=== PATIENT | male | born 1970 | race Caucasian/White ===

== ENCOUNTER 2017-05-26 08:00 | Inpatient (IN) | payer MEDICARE ==
[~2017-05-26] VITALS: Ht 180.3 cm; Wt 99.3 kg
--- NOTE | ~2017-05-26 | PA ---
Unit #: [id number] #: [id number] Patient: KAREEM HODGSON [id number] [facility] [address] [place] [address] [id number] MR#: [id number] NAME: KAREEM HODGSON ROOM: [facility] Age: 46 Sex: M Admission Date: 05/26/2017 : 1970 Date of Assessment: 05/27/2017 Attending Physician: Carlos Blankenship M.D. Admitting Physician: Carlos Blankenship M.D. Primary Care Physician: Primary Care Physician No PSYCHIATRIC ASSESSMENT IDENTIFYING INFORMATION The patient is a 46-year-old white male admitted to the [facility] unit reporting positive suicidal ideation. CHIEF COMPLAINT Tried to kill myself INFORMANT The patient, reliability is fair. HISTORY OF PRESENT ILLNESS The patient is a 46-year-old white male admitted after he had presented to this facility voicing positive suicidal ideation and the patient reports that he attempted to hand himself yesterday and then in fact had gone so far as to throw a rope over a tree limb but reports that he failed because "it hurt too bad." The patient reports that he then took the bus to this facility. The patient reports no specific precipitant to this episode but reports that he has been homeless for some time. He is currently living on a shack on his uncle's property. 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 The patient moved to the [facility] from [place] approximately two years ago. He does report a history of treatment with Depakote in the past. He has an extensive substance abuse history but has been clean from alcohol and other substances since October of 2016. He does have a history of sclerotic liver disease per his report. When seen today the patient continues to endorse positive suicidal ideation. He denies any homicidal ideation. He denies any psychotic symptoms. He is a poor historian. As noted previously he can report no specific stressor which led to yesterday's reported suicide attempt. He eludes to several other previous suicide attempts in the past both by hanging and by attempted self-laceration. PAST PSYCHIATRIC HISTORY The patient reports that he was prescribed Depakote at [facility]" but is currently on no prescribed medication. MEDICATIONS None. ALLERGIES None. FAMILY HISTORY Noncontributory. Unit #: [id number] #: [id number] Patient: KAREEM HODGSON SOCIAL HISTORY The patient states that he completed the eleventh grade. He has never and has no children. He reports history of incarceration on two occasions for "drinking in public". His vocational history is described previously as is his substance abuse history. MENTAL STATUS EXAMINATION At this time reveals the patient to be a well-developed, well-nourished somewhat disheveled white male, appearing his stated age. He is in no apparent physical distress at the time of examination. He is awake, alert, and oriented in all spheres. His mood is dysphoric. His affect is flat. Speech is impoverished and frequently invasive. There are no gross deficits in memory or cognition noted. Intelligence is judged to be in the low average range based on fund of knowledge. The patient is generally cooperative throughout the interview. He is currently endorsing positive suicidal ideation. He denies homicidal ideation. He denies any psychotic symptoms. His judgment and insight appear to have some impairment. ASSETS AND LIABILITIES ASSETS: To be assessed. LIABILITIES: Lack of resources, homelessness. DIAGNOSTIC IMPRESSION 1. Major depressive disorder, recurrent, moderate. 2. Sclerotic liver disease. 3. History of alcohol use disorder. TREATMENT PLAN The patient remains hospitalized for safety and stabilization. I will begin a trial of citalopram 20 mg daily to address the patient's depressive symptoms. He does not at this point report a history which would seem consistent with bipolar spectrum disorder. The patient will participate in appropriate mariee and milieu activities and we will watch for any signs of withdrawal though he denies having abused any substances recently stating that he has been sober since October of this year. ESTIMATED LENGTH OF STAY Seven to ten days. Dictated by... Carlos Blankenship M.D. ANABEL/arminda TD: 05/28/2017 00:10 JOB #: [id number] Unit #: [id number] #: [id number] Patient: KAREEM HODGSON PSYCHIATRIC ASSESSMENT Page 1 of 1 X Carlos Blankenship MD PSYCHIATRIC ASSESSMENT
--- NOTE | ~2017-05-26 | PN ---
Unit #: [id number] #: [id number] Patient: KAREEM HODGSON [id number] [facility] [address] [place] [address] [id number] I MR#: [id number] NAME: KAREEM HODGSON ROOM: P110 Age: 46 Sex: M Admission Date: 05/26/2017 : 1970 Attending Physician: Carlos Blankenship M.D. Admitting Physician: Carlos Blankenship M.D. Primary Care Physician: Primary Care Physician Cassidy DRAKE PROGRESS NOTES DATE 05/29/2017 DISCUSSION The patient remains seclusive to room but wakens without difficulty today. He reports today that he is continuing to have some suicidal ideation but that his thoughts are somewhat reduced. We continue current pharmacotherapy with Risperdal. Dictated by... Carlos Blankenship M.D. CB/amabr TD: 05/29/2017 14:43 JOB #: [id number] [facility] PROGRESS NOTES Page 1 of 1 X Carlos Blankenship MD X PROGRESS NOTE
--- NOTE | ~2017-05-26 | HP ---
Unit #: [id number] #: [id number] Patient: KAREEM HODGSON [id number] [place] [address] [id number] I MR#: [id number] NAME: KAREEM HODGSON ROOM: 74 Age: 46 Sex: M Admission Date: 05/26/2017 : 1970 Attending Physician: Carlos Blankenship M.D. Admitting Physician: Carlos Blankenship M.D. Primary Care Physician: Primary Care Physician No HISTORY AND PHYSICAL HISTORY OF PRESENT ILLNESS The patient is a 46-year-old male admitted to [facility] on 05/26/2017 for suicidal ideations. PAST MEDICAL HISTORY 1. History of recurrent DVT and PE. 2. Cirrhosis. PAST SURGICAL HISTORY IVC filter. SOCIAL HISTORY He is unemployed. He lives in a shed. He smokes three to four cigarettes per day. Drinks a 12-pack of beer per week and uses heroin on a daily basis. FAMILY MEDICAL HISTORY Noncontributory. ALLERGIES No known drug allergies. CURRENT MEDICATIONS Patient is not on any home medications. REVIEW OF SYSTEMS CONSTITUTIONAL: No fever or chills. HEENT: Denies any sore throat, ear pain or runny nose. CARDIOVASCULAR: Denies chest pain, irregular heart rhythm or palpitations. CHEST: Denies shortness of breath or cough. No hemoptysis. GASTROINTESTINAL: Denies nausea, vomiting, diarrhea or chronic constipation. ENDOCRINE: Denies history of increased thirst or urination. No recent significant weight loss or gain. GENITOURINARY: Denies dysuria, frequency, or hematuria. SKIN: Denies any rashes. HEMATOLOGIC: Denies history of increased bleeding or bruising. MUSCULOSKELETAL: Denies any hot, swollen joints. No generalized muscle pain. NEUROLOGIC: Denies problems with vision or speech. No frequent, severe headaches. No numbness, tingling or weakness in any extremities. Denies loss of bladder or bowel control. Unit #: [id number] #: [id number] Patient: KAREEM HODGSON PHYSICAL EXAM GENERAL: He is awake, alert and oriented in no acute distress. VITAL SIGNS: Temperature 98.1, heart rate 98, respiration 24, blood pressure 139/57. HEIGHT: 5'11". WEIGHT: 219 pounds. SKIN: Warm and dry without rash or lesion. HEENT: Normocephalic. TMs not viewed. Oral and nasal passages clear. Conjunctivae clear. PERRLA. EOMs intact. NECK: Supple without lymphadenopathy or thyromegaly. HEART: Regular rate and rhythm without murmur. LUNGS: Clear. ABDOMEN: Soft, nontender. : Not done. EXTREMITIES: No evidence of cyanosis, clubbing or edema. Moves all without focal deficit. NEUROLOGICAL: Grossly within normal limits. Cranial Nerves: II: Visual aals are intact. III, IV AND : Extraocular movements are intact. Pupils are equal, round and reactive to light. V: Facial sensation is grossly normal. VII: Facial movements and expression are normal. VIII: Auditory acuity grossly intact. IX, X: Uvula is midline. Phonation is normal. XI: Patient shrugs shoulders and turns head normally. XII: Tongue protrudes in the midline. Sensory and Motor Function: Sensory and motor sensation is grossly normal. Motor: moves all extremities well. IMPRESSION 1. Psychiatric admission. 2. History of recurrent DVT and PE. 3. Cirrhosis. RECOMMENDATIONS Psychiatric per psychiatrist. MEDICAL: No contraindication to participate in facility activities. MEDICAL PROGNOSIS Good. MEDICAL CONDITION Stable. Dictated by... Garrett Guo/arminda TD: 05/28/2017 01:42 JOB #: [id number] Unit #: [id number] #: [id number] Patient: KAREEM HODGSON HISTORY AND PHYSICAL Page 1 of 1 X BERTHA PRESLEY APRN X HISTORY AND PHYSICAL
--- NOTE | ~2017-05-26 | PN ---
Unit #: [id number] #: [id number] Patient: KAREEM HODGSON [id number] [facility] [address] [place] [address] [id number] I MR#: [id number] NAME: KAREEM HODGSON ROOM: P110 Age: 46 Sex: M Admission Date: 05/26/2017 : 1970 Attending Physician: Carlos Blankenship M.D. Admitting Physician: Carlos Blankenship M.D. Primary Care Physician: Primary Care Physician No [facility] PROGRESS NOTES DATE 05/30/2017 DISCUSSION The patient is abed and remains seclusive to room but seems less disorganized in his thinking and reports no psychotic thinking or suicidal thinking. Should he sustain progress, discharge should take place as early as tomorrow. Dictated by... Carlos Blankenship M.D. CB/bzg TD: 05/30/2017 14:22 JOB #: [id number] [facility] PROGRESS NOTES Page 1 of 1 X Carlos Blankenship MD X PROGRESS NOTE
--- NOTE | ~2017-05-26 | PN ---
Unit #: [id number] #: [id number] Patient: KAREEM HODGSON [id number] [facility] [address] [place] [address] [id number] I MR#: [id number] NAME: KAREEM HODGSON ROOM: P110 Age: 46 Sex: M Admission Date: 05/26/2017 : 1970 Attending Physician: Carlos Blankenship M.D. Admitting Physician: Carlos Blankenship M.D. Primary Care Physician: Primary Care Physician Cassidy DRAKE PROGRESS NOTES DATE 05/28/2017 DISCUSSION The patient remains seclusive to room and multiple attempts to arouse the patient today are at last unsuccessful. Staff reports that the patient remains bizarre in his presentation with possible thought blocking and psychosis as he is not participating in program and appears to have more of a psychotic picture. We will transfer to the [address] [place] [address] unit. I will restart the patient on Risperdal 2 mg at h.s. Dictated by... Carlos Blankenship M.D. ANABEL/arminda TD: 05/28/2017 22:27 JOB #: [id number] [facility] PROGRESS NOTES Page 1 of 1 X Carlos Blankenship MD PROGRESS NOTE
--- NOTE | ~2017-05-26 | A ---
[facility] Nutrition Therapy DATE: 05/28/17 Patient: KAREEM HODGSON Physician: CASANDRA Address: [address] [place] [address] RD Room/Bed: [address], Zip: [place] [address] Admit Date: 05/26/17 Date of : [birth year] Height: 5 11 Weight: [phone] NUTRITIONAL ASSESSMENT: REASON: 2 NUTRITIONAL RISK POINTS: UNINTENTIONAL WEIGHT LOSS, CHEWING/SWALLOWING DIFFICULTIES PATIENT ADMITTED FOR SI PMH: DVT, PE, CIRROHSIS Anthropometrics: HT: 71", WT: 219#, BMI: 30.5 Labs: 05/27/17- GLU: 114, ALL OTHER NUTRITIONAL LABS WNL Meds: MELATONIN, CELEXA Assessment: PATIENT IS A 46 Y/O MALE ADMITTED FOR SI. PATIENT IS CURRENTLY UNEMPLOYED, LIVES IN A SHED, SMOKES <1 PPD, AND HE HAS A HX OF DAILY HEROIN USE AND WEEKLY ETOH USE. HE HAS BEEN SOBER SINCE OCTOBER 2016. IT IS NOTED THAT PATIENT IS A VERY POOR HISTORIAN AND HE HAS A HX OF PSYCH AND CHEMICAL DEPENDENCY TREATMENT. UPON ADMIT PATIENT STATED A POOR APPETITE WITH NO RECENT WEIGHT CHANGES, AND HE SLEEP AND AVG OF 2 HRS/NIGHT. NURSING REPORTS FAIR PO INTAKES. CURRENT PSYCH MEDS MAY CAUSE AN INCREASE IN WEIGHT AND APPETITE. THERE ARE NO SKIN OR GI ISSUES NOTED ATT. PATIENT IS ON A REGULAR DIET WITH NO CAFFEINE AND LARGE PORTION ENTREES. HIS BMI IS ABOVE A HEALTHY RANGE OF 19-25. THERE ARE NO C/O CHEWING OR SWALLOWING DIFFICULTIES NOTED ATT. Dx: NO NUTRITIONAL RISK Intervention: REGULAR DIET, NO CAFFEINE, LARGE PORTIONS, MEDS PER MD, PSYCH Monitoring, Evaluation and Goals: 1. ADEQUATE PO INTAKES >50% OF MEALS 2. PREVENT, CORRECT MICRO/MACRO NUTRIENT DEFICIENCIES MONITOR: WEIGHTS, LABS, PO/FLUID INTAKES Recommendations: 1. CONTINUE REGULAR DIET WITH NO CAFFEINE AND LARGE PORTION ENTREES TOLERATED. 2. ENCOURAGE ADEQUATE PO AND FLUID INTAKES 3. OBTAIN WEIGHTS ROUTINELY (EVERY 3-4 DAYS) 4. IF PATIENT HAS C/O CHEWING/SWALLOWING DIFFICULTIES PLEASE CONSULT IS CONSULTANT FOR FURTHER EVALUATION [facility] Nutrition Therapy DATE: 05/28/17 Patient: KAREEM OHDGSON Physician: CASANDRA Address: [address] [place] [address] RD Room/Bed: [address], Zip: [place] [address] Admit Date: 05/26/17 Date of : [birth year] Height: 5 11 Weight: [phone] TO F/U PERP PROTOCOL AND PRN R/T PATIENT NOT AT NUTRITIONAL RISK ATT Respectfully, TOMEKA FLORES RD, LD Food and Nutrition[facility] Services [facility] cc: client file
--- NOTE | ~2017-05-26 | DS ---
Unit #: [id number] #: [id number] Patient: KAREEM HODGSON [id number] [facility] [address] [place] [address] [id number] MR#: [id number] NAME: KAREEM HODGSON ROOM: P110 Age: 46 Sex: M Admission Date: 05/26/2017 : 1970 Discharge Date: 05/31/2017 Attending Physician: Carlos Blankenship M.D. Primary Care Physician: Primary Care Physician No DISCHARGE SUMMARY REASON FOR ADMISSION The patient is a 46-year-old white male with suicidal ideation and some psychotic symptoms. HOSPITAL COURSE The patient was admitted to the [facility] Unit and placed on suicide precautions. Initially we thought he was suffering from a substance-induced psychosis. However, it became clear that this is not the case. He was transferred to the [address] [place] [address] Unit and begun on Risperdal 1 mg at h.s. to address psychotic symptoms and was continued on citalopram which had been started for depressive symptoms. The patient's recovery was a rapid and dramatic one, and by 05/31/2017 the patient requested discharge. At that point, he was in bright spirits and requested discharge, and it was so ordered. FINAL DIAGNOSES 1. Major depressive disorder, severe, recurrent, with psychotic features. 2. Cirrhotic liver disease. DISPOSITION ON DISCHARGE The patient was discharged on the following medications: 1. Celexa 20 mg daily for depression. 2. Risperdal 2 mg at h.s. for psychosis. DIET AND ACTIVITY No dietary or physical restrictions were placed on the patient at the time of discharge. FOLLOWUP Followup will take place through the auspices of community mental health resources. PROGNOSIS Considered fair. Dictated by... Carlos Blankenship M.D. CB/ambar TD: 06/01/2017 07:01 JOB #: [id number] Unit #: [id number] #: [id number] Patient: KAREEM HODGSON DISCHARGE SUMMARY Page 1 of 1 X Carlos Blankenship MD X DISCHARGE SUMMARY
[~2017-05-26 08:00] MED LIST: ANTIVERT PO; ARIXTRA10 MG/0.8 SQ; COUMADIN5 MG PO; DEPAKOTE PO; HYDROCODON-ACE1 EAC7 PO; RISPERDAL2 MG PO; SEROQUEL PO; VICODIN 5/1 TAB 5/50 PO
[2017-05-27 10:49] LABS: BASOPHIL# 0.1 X10e3 (0-0.3); BASOPHIL% 0.6 % (0-2.5); EOSINOPHIL# 0.2 X10e3 (0-0.7); EOSINOPHIL% 2.3 % (0.0-7.0); HEMATOCRIT 39.4 % (38.0-50.0); HEMOGLOBIN 13.5 gm/dL (13.0-16.0); LYMPHOCYTE# 1.5 X10e3 (1.0-3.5); LYMPHOCYTE% 18.1 % (17.0-45.0); MEAN CELL VOLUME 98.1 FL (83-96); MEAN CORPUSCULAR HEMOGLOBIN 33.7 PG (28-34); MEAN CORPUSCULAR HGB CONC 34.3 g/dL (30-36); MEAN PLATELET VOLUME 7.8 FL (6.5-11.5); MONOCYTE% 11.8 % (3.0-12.0); NEUTROPHIL# 5.5 X10e3 (1.5-7.1); NEUTROPHIL% 67.2 % (40-75); PLATELET COUNT 171 X10e3 (140-420); RED BLOOD COUNT 4.01 X10e (3.90-5.60); RED CELL DISTRIBUTION WIDTH 13.4 % (11.0-15.5); WHITE BLOOD COUNT 8.2 X10e3 (4.0-10.5)
[2017-05-27 10:52] LABS: DIFF IND NO
[2017-05-27 11:22] LABS: ALBUMIN SERUM 3.6 g/dL (3.5-5.0); BILIRUBIN,TOTAL 0.5 mg/dL (0.2-2.0); BUN/CREATININE RATIO 16.66; CALCIUM SERUM 8.5 mg/dL (8.4-10.2); CREATININE SERUM 0.9 mg/dL (0.6-1.4); GLOM FILT RATE Estimated 100.6 mL/min (>60); POTASSIUM 4.3 mmol/L (3.5-5.1); PROTEIN TOTAL SERUM 5.7 g/dL (6.0-8.3)
== END 2017-05-31 14:30 | disposition home or self-care (01) | DRG 885 ==
LOC: P1E 10:31 → P1S 05-28 18:40
PROVIDERS: Specialist
DX: F33.1 Major depressive disorder, recurrent, moderate (principal); K74.60 Unspecified cirrhosis of liver; F17.210 Nicotine dependence, cigarettes, uncomplicated
CPT/HCPCS: 80053; 85025